=== PATIENT | male | born 1965 | race Caucasian/White ===

== ENCOUNTER 2018-07-22 21:00 | Emergency (ER) | payer OTHER ==
[~2018-07-22] VITALS: Ht 170.2 cm; Wt 90.7 kg
[2018-07-22 21:04] VITALS: BP_SYST 159
[2018-07-22 21:34] VITALS: BP_SYST 142
== END 2018-07-22 21:33 ==
LOC: SED 21:00
DX: E11.9 Type 2 diabetes mellitus without complications (principal); I10 Essential (primary) hypertension; Z88.6 Allergy status to analgesic agent
CPT/HCPCS: 82962; 99283